=== PATIENT | female | born 1985 | race Asian ===

== ENCOUNTER → 2016-11-13 | Outpatient (CLI) | payer OTHER ==
[~2016-11-13] MED LIST: ARICEPT10 MG PO; CELEBREX200 MG PO; ESCITALOPRAM20 M1 PO; LYRICA50 M1 PO; METFORMIN ER500 M1 PO; METOPROLOL SUCC25 M1 PO; NEURONTIN400 MG PO; SIMVASTATIN20 M1 PO
== END | disposition home or self-care (01) ==
LOC: RD 12:55
DX: M54.2 Cervicalgia (principal)

== ENCOUNTER → 2016-11-18 | Outpatient (CLI) | payer OTHER ==
[2016-11-18 08:54] LABS: BASOPHIL % 0.7 % (0-2); PLATELET COUNT 251 x10^3mcL (130-400)
[2016-11-18 08:56] LABS: RED CELL DISTRIBUTION WIDTH 15.3 % (11.5-14.5)
[2016-11-18 09:12] LABS: ALBUMIN 3.9 g/dL (3.4-5.0); ALKALINE PHOSPHATASE 51 U/L (46-116); ALT/SGPT 26 U/L (14-59); AST/SGOT 19 U/L (15-37); BILIRUBIN TOTAL 0.38 mg/dL (0.20-1.00); CALCIUM 8.9 mg/dL (8.5-10.1); CHLORIDE SERUM 105 mmol/L (98-107); CHOLESTEROL 163 mg/dL (<200); CREATININE SERUM 0.6 mg/dL (0.6-1.0); GFR1 > 60 mL/min; GLUCOSE SERUM 89 mg/dL (74-106); POTASSIUM SERUM 4.5 mmol/L (3.5-5.1); SODIUM SERUM 140 mmol/L (136-145); TOTAL PROTEIN, SERUM 7.7 g/dL (6.4-8.2); TRIGLYCERIDES 57 mg/dL (<150)
[2016-11-18 09:14] LABS: HDL CHOLESTEROL 80 mg/dL (40-60)
[2016-11-18 09:20] LABS: FREE T4 0.89 ng/dL (0.76-1.46); FREE THYROXINE INDEX 2.9 ug/dL (1.4-4.5); T4(THYROXINE) 8.7 ug/dL (4.7-13.3)
[2016-11-18 11:00] LABS: T3 TOTAL 1.18 ng/mL
== END | disposition home or self-care (01) ==
LOC: LB 08:22
PROVIDERS: Student in an Organized Health Care Education/Training Program
DX: Z00.00 Encounter for general adult medical examination without abnormal findings (principal)
CPT/HCPCS: 84439

== ENCOUNTER → 2017-01-06 | Outpatient (CLI) | payer OTHER | END | disposition home or self-care (01) | LOC: CT 08:34 | PROC: BW2FZZZ Computerized Tomography (CT Scan) of Neck (ICD-10-PCS; principal; 2017-01-06) | DX: F45.8 Other somatoform disorders (principal) ==